=== PATIENT | male | born 1985 | race Caucasian/White ===

== ENCOUNTER 2023-03-31 23:53 | Emergency (ER) | payer MEDICAID ==
[~2023-03-31] VITALS: Ht 175.3 cm; Wt 68.0 kg
--- NOTE | 2023-04-01 00:10 | NUR ---
PT AMB TO 5B WITH FT PAIN.
--- NOTE | 2023-04-01 00:15 | NUR ---
Dr Bar into eval patient.
[2023-04-01] MEDS ORDERED: KETOROLAC TROMETHAMINE 30 MG INJ IM ONE (00:30)
[2023-04-01] MEDS ORDERED: CIPROFLOXACIN HCL 250 MG TABLET PO ONE (00:30)
[2023-04-01] MEDS ORDERED: TDAP DIPH,PERTUSS,TET VAC/PF 0.5 ML DISP.SYRIN IM ONE ×3 (00:30→01:26)
[2023-04-01] MEDS ORDERED: NAPR-1164 PO (00:31)
[2023-04-01] MEDS ORDERED: CIPR-262 PO (00:31)
[2023-04-01] MEDS ORDERED: KETOROLAC TROMETHAMINE 30 MG INJ ONE (00:35)
[2023-04-01] MEDS ORDERED: CIPROFLOXACIN HCL 250 MG TABLET ONE (00:35)
--- NOTE | 2023-04-01 01:00 | NUR ---
PT'S L FT CLEANED WITH HYDROGEN PEROXIDE AND BANDAID APPLIED.
--- NOTE | 2023-04-01 01:20 | NUR ---
PT A,A AND O X 4 WITH L FT PAIN 4 AND NAD OBSERVED.Patient discharged to home in stable condition. Written and verbal after care instructions given. Patient verbalizes understanding of instructions. Stressed follow up or return to ER for worsening s/s. PT AMB OUT WITH STEADY GAIT WITH FRIEND.
[2023-04-01 02:09] VITALS: BP 119/75
[2023-04-02] MEDS ORDERED: ACET1TAB23 PO (00:51)
[2023-04-02] MEDS ORDERED: CEPH500C2 PO (00:51)
== END 2023-04-01 01:20 | disposition home or self-care (01) ==
LOC: ER 23:58
DX: S91.331A Puncture wound without foreign body, right foot, initial encounter (principal); F17.210 Nicotine dependence, cigarettes, uncomplicated; Z79.2 Long term (current) use of antibiotics; Z79.899 Other long term (current) drug therapy; W45.0XXA Nail entering through skin, initial encounter; Y93.89 Activity, other specified; Y92.89 Other specified places as the place of occurrence of the external cause; Y99.8 Other external cause status
CPT/HCPCS: 99284; 73630; 90715; 96372; 90471; J1885; A4663

== ENCOUNTER 2023-04-01 23:43 | Emergency (ER) | payer MEDICAID ==
[~2023-04-01] VITALS: Ht 175.3 cm; Wt 68.0 kg
[~2023-04-01 23:43] MED LIST: CIPR-262 PO; NAPR-1164 PO
--- NOTE | 2023-04-02 00:22 | NUR ---
Dr. Mcgee evaluating patient at bedside. MSE in progress.
--- NOTE | 2023-04-02 00:29 | NUR ---
Culture swab sent to lab.
[2023-04-02] MEDS ORDERED: CEFTRIAXONE 1 G in IV DEXTROSE 5% 50 ML IV ONE (00:30)
[2023-04-02 00:46] LABS: HEMATOCRIT 39.8 % (36.7-47.1); MEAN CORPUSCULAR HEMOGLOBIN 29.6 uug (23.8-33.4); MEAN CORPUSCULAR VOLUME 88.2 fL (73.0-96.2); PLATELET COUNT (AUTO) 211 K/uL (152-348)
[2023-04-02] MEDS ORDERED: CEFTRIAXONE /D5W 50ML IVPB **ER PYXIS IV ONE (00:48)
[2023-04-02] MEDS ORDERED: ACET1TAB23 PO (00:51)
[2023-04-02] MEDS ORDERED: CEPH500C2 PO (00:51)
--- NOTE | 2023-04-02 01:15 | NUR ---
Patient discharged to home in stable condition. Written and verbal after care instructions given. Patient verbalizes understanding of instructions. Stressed follow up or return to ER for worsening s/s. Handed patient printed medication prescriptions.
[2023-04-02 01:17] VITALS: BP 110/65
== END 2023-04-02 01:18 | disposition home or self-care (01) ==
LOC: ER 23:46
DX: S81.832A Puncture wound without foreign body, left lower leg, initial encounter (principal); L03.116 Cellulitis of left lower limb; F17.210 Nicotine dependence, cigarettes, uncomplicated; Z71.6 Tobacco abuse counseling; Z79.2 Long term (current) use of antibiotics; Z79.899 Other long term (current) drug therapy; X58.XXXA Exposure to other specified factors, initial encounter; Y93.89 Activity, other specified; Y92.89 Other specified places as the place of occurrence of the external cause; Y99.8 Other external cause status
CPT/HCPCS: 99284; 96365; 85025; 36415; 87070; 87075; J0696; A4663

== ENCOUNTER 2023-04-04 00:15 | Emergency (ER) | payer MEDICAID ==
[~2023-04-04] VITALS: Ht 175.3 cm; Wt 68.0 kg
[~2023-04-04 00:15] MED LIST changes: +ACET1TAB23 PO; +CEPH500C2 PO
--- NOTE | 2023-04-04 00:45 | NUR ---
Dr. Medrano in roomat bedside. MSE in progress.
--- NOTE | 2023-04-04 01:06 | NUR ---
Patient discharged to home in stable condition. Written and verbal after care instructions given. Patient verbalizes understanding of instructions. Stressed follow up or return to ER for worsening s/s. Madeline walked out with steady gait.
[2023-04-04 01:24] VITALS: BP 116/72
== END 2023-04-04 01:20 | disposition home or self-care (01) ==
LOC: ER 00:15
DX: S91.331D Puncture wound without foreign body, right foot, subsequent encounter (principal); R19.7 Diarrhea, unspecified; F17.210 Nicotine dependence, cigarettes, uncomplicated; Z79.2 Long term (current) use of antibiotics; Z79.899 Other long term (current) drug therapy; W45.0XXD Nail entering through skin, subsequent encounter
CPT/HCPCS: A4663